=== PATIENT | female | born 1950 | race Caucasian/White ===

== ENCOUNTER → 2020-05-06 | Outpatient (CLI) | payer MEDICARE | LOC: COL.RAD 08:39 | DX: C71.1 Malignant neoplasm of frontal lobe (principal); Z98.890 Other specified postprocedural states; Z92.3 Personal history of irradiation | CPT/HCPCS: A9585 ==

== ENCOUNTER → 2020-08-13 | Outpatient (CLI) | payer MEDICARE, OTHER | LOC: COL.RAD 08:59 | DX: C71.1 Malignant neoplasm of frontal lobe (principal) | CPT/HCPCS: A9585 ==

== ENCOUNTER → 2020-11-15 | Outpatient (CLI) | payer MEDICARE, OTHER | LOC: COL.RAD 11:19 | DX: Z01.812 Encounter for preprocedural laboratory examination (principal); C71.9 Malignant neoplasm of brain, unspecified | CPT/HCPCS: A9585 ==

== ENCOUNTER → 2021-01-14 | Outpatient (CLI) | payer MEDICARE, OTHER | LOC: COL.RAD 11:52 | DX: C71.1 Malignant neoplasm of frontal lobe (principal) | CPT/HCPCS: A9585 ==

== ENCOUNTER → 2021-09-17 | Outpatient (CLI) | payer MEDICARE, OTHER | LOC: COL.RAD 07:46 | DX: C71.9 Malignant neoplasm of brain, unspecified (principal) | CPT/HCPCS: A9575 ==

== ENCOUNTER → 2021-12-16 | Outpatient (CLI) | payer MEDICARE, OTHER | LOC: COL.RAD 10:30 | DX: D49.6 Neoplasm of unspecified behavior of brain (principal) | CPT/HCPCS: A9575 ==

== ENCOUNTER → 2022-03-05 | Outpatient (CLI) | payer MEDICARE | LOC: COL.RAD 09:41 | DX: C71.9 Malignant neoplasm of brain, unspecified (principal) | CPT/HCPCS: A9575 ==